=== PATIENT | male | born 1975 | race Caucasian/White ===

== ENCOUNTER 2017-10-16 04:01 | Emergency (ER) | payer BC ==
[~2017-10-16] VITALS: Ht 190.5 cm; Wt 80.7 kg
[2017-10-16] MEDS ORDERED: LIDOCAINE 1% Multi-Dose 20 ML VIAL. ONE (04:15)
--- NOTE | 2017-10-16 04:30 | PHYS DOC ---
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 no LOC. no headache, no n/v. lac to post scalp Review of Systems Review of Systems Constitutional: Denies fever or chills [] Eyes: Denies change in visual acuity, redness, or eye pain [] HENT: Denies nasal congestion or sore throat scalp lac Respiratory: Denies cough or shortness of breath [] Cardiovascular: No additional information not addressed in HPI [] GI: Denies abdominal pain, nausea, vomiting, bloody stools or diarrhea [] : Denies dysuria or hematuria [] Musculoskeletal: Denies back pain or joint pain [] Integument: Denies rash or skin lesions [] Neurologic: Denies headache, focal weakness or sensory changes [] Endocrine: Denies polyuria or polydipsia [] All other systems were reviewed and found to be within normal limits, except as documented in this note. Current Medications Current Medications Current Medications Medications (Trade) Dose Ordered Sig/Arianna Start Time Stop Time Status Last Admin Dose Admin Lidocaine HCl 20 ml STK-MED ONCE 10/16/17 04:15 10/16/17 04:16 DC Lidocaine/ Epinephrine (Xylocaine 1%-Epi 1:100,000) 20 ml 1X ONCE 10/16/17 04:30 10/16/17 04:31 UNV Allergies Allergies Allergies Coded Allergies Type Severity Reaction Last Updated Verified No Known Drug Allergies 11/04/15 No Physical Exam Physical Exam Constitutional: Well developed, well nourished, no acute distress, non-toxic appearance. [] HENT: 2inch lac to left post paritetal scalp. bleeding controlled. linear lac. bilateral external ears normal, oropharynx moist, no oral exudates, nose normal. [] Eyes: PERRLA, EOMI, conjunctiva normal, no discharge. [] Neck: Normal range of motion, no tenderness, supple, no stridor. [] Cardiovascular:Heart rate regular rhythm, no murmur [] Lungs & Thorax: Bilateral breath sounds clear to auscultation [] Abdomen: Bowel sounds normal, soft, no tenderness, no masses, no pulsatile masses. [] Skin: Warm, dry, no erythema, no rash. [] Back: No tenderness, no CVA tenderness. [] Extremities: No tenderness, no cyanosis, no clubbing, ROM intact, no edema. [] Neurologic: Alert and oriented X 3, normal motor function, normal sensory function, no focal deficits noted. nml neuro exam Psychologic: Affect normal, judgement normal, mood normal. [] EKG EKG [] Radiology/Procedures Radiology/Procedures lac repair.: 8cc 1% lidocaine infused after cleaning with betadine and water. 6 molly placed. no complications and tolerated well[] Course & Med Decision Making Course & Med Decision Making Pertinent Labs and Imaging studies reviewed. (See chart for details) pt has nml neuro exam. explained about delayed bleeding and to return to ED for headache, n/v, any change in neuro behaviours. he lives with who will watch him. his sister is EMT. he will return here or to his doctor for concussive sx. I asked him to avoid heights at work [] Dragon Disclaimer Dragon Disclaimer This electronic medical record was generated, in whole or in part, using a voice recognition dictation system. Departure Departure: Impression: Primary Impression: Scalp laceration Disposition: HOME, SELF-CARE Condition: IMPROVED Referrals: LARISSA QUIROGA MD (PCP) Patient Instructions: Head Injury, Adult, Laceration Care, Adult Additional Instructions: have molly out in 10 days. return if any infection, headache, nausea/vomiting , any change in thinking, walking, talking. have your doctor recheck in 3-4 days YEVGENIY DUBON MD Oct 16, 2017 04:30
[2017-10-16 04:45] VITALS: BP 140/87
[2017-10-16] MEDS ORDERED: LIDOCAINE 1%/EPI 1:100,000 20 ML VIAL. IJ ONE (04:45)
[2017-10-16] MEDS ORDERED: LIDOCAINE 1% Multi-Dose 20 ML VIAL. IJ ONE (05:00)
== END 2017-10-16 04:45 | disposition home or self-care (01) ==
LOC: ER 04:01
DX: S01.01XA Laceration without foreign body of scalp, initial encounter (principal); F12.10 Cannabis abuse, uncomplicated; W01.0XXA Fall on same level from slipping, tripping and stumbling without subsequent striking against object, initial encounter; Y93.89 Activity, other specified; Y99.8 Other external cause status; Y92.89 Other specified places as the place of occurrence of the external cause
CPT/HCPCS: 12002; 99283

== ENCOUNTER 2020-03-18 16:01 | Emergency (ER) | payer BC, OTHER ==
[~2020-03-18] VITALS: Ht 190.5 cm; Wt 83.3 kg
[2020-03-18 16:15] VITALS: BP 106/66
--- NOTE | 2020-03-18 16:37 | RAD ---
Study: CR HAND RIGHT 3V Indication: Fall. Hand pain. Comparison: None. Findings: No definite fracture seen throughout the hand or wrist. Only seen on the oblique view is a faint cortical regularity along the ulnar margin of the index metacarpal base (see tobias image). No traumatic malalignment. Faint densities projecting within or overlying the pulp of the index and long fingers. This may be external to the patient. Impression: Slight cortical regularity along the ulnar margin of the index metacarpal base only seen on the oblique view. This is not definitively an acute fracture but recommend correlation for localized tenderness. No osseous abnormality elsewhere. Electronically signed by: ABDI MOLINA MD (03/18/2020 4:34 PM) [id number]
--- NOTE | 2020-03-18 16:42 | PHYS DOC ---
Past History Past Medical History: Cancer, Other Additional Past Medical Histor: BACK PROBLEMS Past Surgical History: Cancer Surgery, Hip Replacement, Other Additional Past Surgical Histo: LEFT KIDNEY AND LEFT TESTICAL REMOVED(CA), LEFT ELBOW Additional Smoking Information: 1/2 PACK Alcohol Use: None Drug Use: Marijuana Adult General Chief Complaint Chief Complaint: HAND PROBLEM HPI HPI Patient is a 44-year-old male who presents for work-related fall. 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 Patient did not lose consciousness or hit head but ever since fall just prior to arrival but patient does voice ongoing pain to base of right middle finger. There is no palpable abnormality and/or open fr acture that is obvious but given ongoing pain, patient concern for potential bone break prompting him to seek care at our ER for evaluation Review of Systems Review of Systems Fourteen body systems of review of systems have been reviewed. See HPI for pertinent positives and negative responses, other echols all other systems are negative, non-pertinent or non-contributory Allergies Allergies Allergies Coded Allergies Type Severity Reaction Last Updated Verified No Known Drug Allergies 11/04/15 No Physical Exam Physical Exam Constitutional: Well developed, well nourished, no acute distress, non-toxic appearance. HENT: Normocephalic, atraumatic, bilateral external ears normal, oropharynx moist, no oral exudates, nose normal. Eyes: PERRLA, EOMI, conjunctiva normal, no discharge. Neck: Normal range of motion, no tenderness, supple, no stridor. Cardiovascular: Heart rate regular, sinus rhythm, no murmurs rubs or gallops Lungs & Thorax: Bilateral breath sounds clear to auscultation Abdomen: Bowel sounds normal, soft, no tenderness, no masses, no pulsatile masses. Nonsurgical abdomen, no peritoneal signs Skin: Warm, dry, no erythema, no rash. Back: No tenderness, no CVA tenderness. Extremities: No cyanosis, no clubbing, ROM intact, no edema. Direct pain to palpation of base of right index finger metacarpal, no anatomical snuffbox tenderness or other abnormalities of right hand, as noted before unremarkable motor and sensory testing Neurologic: Alert and oriented X 3, normal motor & sensory function, no focal deficits noted. Psychologic: Affect normal, judgement normal, mood normal. Current Patient Data Vital Signs Vital Signs Date Time Temp Pulse Resp B/P (MAP) Pulse Ox O2 Delivery O2 Flow Rate FiO2 03/18/20 16:15 98.8 78 20 106/66 (79) 98 Room Air EKG EKG PROCEDURE: HAND RIGHT 3V Study: CR HAND RIGHT 3V Indication: Fall. Hand pain. Comparison: None. Findings: No definite fracture seen throughout the hand or wrist. Only seen on the oblique view is a faint cortical regularity along the ulnar margin of the index metacarpal base (see tobias image). No traumatic malalignment. Faint densities projecting within or overlying the pulp of the index and long fingers. This may be external to the patient. Impression: Slight cortical regularity along the ulnar margin of the index metacarpal base only seen on the oblique view. This is not definitively an acute fracture but recommend correlation for localized tenderness. No osseous abnormality elsewhere. Electronically signed by: ABDI MOLINA MD (03/18/2020 4:34 PM) [id number] Radiology/Procedures Radiology/Procedures PROCEDURE: HAND RIGHT 3V Study: CR HAND RIGHT 3V Indication: Fall. Hand pain. Comparison: None. Findings: No definite fracture seen throughout the hand or wrist. Only seen on the oblique view is a faint cortical regularity along the ulnar margin of the index metacarpal base (see tobias image). No traumatic malalignment. Faint densities projecting within or overlying the pulp of the index and long fingers. This may be external to the patient. Impression: Slight cortical regularity along the ulnar margin of the index metacarpal base only seen on the oblique view. This is not definitively an acute fracture but recommend correlation for localized tenderness. No osseous abnormality elsewhere. Electronically signed by: ABDI MOLINA MD (03/18/2020 4:34 PM) [id number] Course & Med Decision Making Course & Med Decision Making Well-appearing ambulatory patient seen on immediate ER arrival ABCs unremarkable Comprehensive history and physical exam obtained, subsequent diagnostic studies ordered Discussed nonconclusive radiographs of right hand concerning for base of right index finger metacarpal cortical fracture that is minimally displaced I discussed various plans of care with patient but ultimately, joint decision to follow rice protocol with Velcro right hand splint applied and close orthopedic follow-up for reevaluation and potential imaging as indicated Strict return precautions were discussed with patient with good understanding, all questions and concerns addressed prior to ER departure in stable condition Dragon Disclaimer Dragon Disclaimer This electronic medical record was generated, in whole or in part, using a voice recognition dictation system. Departure Departure: Impression: Primary Impression: Right hand pain Disposition: 01 HOME/RESIDENCE PRIOR TO ADM Condition: STABLE Referrals: LARISSA QUIROGA MD (PCP) DMITRY GARVIN II, MD Please call first thing tomorrow morning to schedule outpatient follow-up for your right hand pain Patient Instructions: RICE - Routine Care for Injuries Additional Instructions: As discussed prior to ER departure, please continue supportive care consisting of icing, Tylenol and Motrin for pain relief, and gentle compression and restriction of your right hand You would benefit from outpatient orthopedic consultation. They will reevaluate you and potentially reimage the hand given uncertainty of imaging today for a subtle acute fracture at the base of your index finger metacarpal Please call your primary care physician to follow-up on this ER visit and for continuity of care in upcoming 1 to 10 days time If there is anything more we can assist you with in the outpatient setting and/or new concerning symptoms arise requiring prompt medical attention please do not hesitate to contact us or re-present for evaluation Justification of Admission: Justification of Admission: Justification of Admission Dx: N/A ZIYAD PÉREZ DO Mar 18, 2020 16:42
== END 2020-03-18 16:58 | disposition home or self-care (01) ==
LOC: ER 16:01
DX: M79.641 Pain in right hand (principal); M79.644 Pain in right finger(s); F17.200 Nicotine dependence, unspecified, uncomplicated; W18.39XA Other fall on same level, initial encounter; Y93.89 Activity, other specified; Y92.89 Other specified places as the place of occurrence of the external cause; Y99.0 Civilian activity done for income or pay
CPT/HCPCS: 29125; 73130; 99283

== ENCOUNTER 2021-06-04 09:29 | Emergency (ER) | payer BC, OTHER ==
[~2021-06-04] VITALS: Ht 190.5 cm; Wt 83.3 kg
[2021-06-04 09:55] VITALS: BP 121/77
[2021-06-04] MEDS ORDERED: HYDROcodone/APAP 5/325MG 1 TAB TABLET PO ONE (10:15)
--- NOTE | 2021-06-04 11:30 | RAD ---
Single AP view of the pelvis with AP and frog-leg lateral views of the left hip were obtained. History: Fall with pain Comparison: none. Patient status post bilateral hip arthroplasties. No fracture is seen about the left proximal femur a cetabulum. The femoral head is located in the acetabulum. No significant degenerative changes are s een. Impression: 1. Unremarkable plain film exam of the left hip. Electronically signed by: Alexsander Horn MD (06/04/2021 11:27 AM) [id number]
--- NOTE | 2021-06-04 11:41 | PHYS DOC ---
Past History Past Medical History: Cancer, Other Additional Past Medical Histor: testicular cancer and bladder cancer (JUNIE CABRERA APRN) Past Surgical History: Cancer Surgery, Hip Replacement, Other Additional Past Surgical Histo: LEFT KIDNEY AND LEFT TESTICAL REMOVED(CA), LEFT ELBOW (JUNIE CABRERA APRN) Alcohol Use: None Drug Use: Marijuana (JUNIE CABRERA APRN) General Adult EDM: Chief Complaint: HIP PAIN HPI: HPI: Patient is a 46-year-old male presents after a fall on Thursday with left hip pain. Patient denies any other injuries. Denies hitting his head or loss of consciousness. Patient states he has been taking Tylenol at home with little relief. Pain is exacerbated by standing and improved with sitting. Patient has a history of bladder and testicle cancer. Denies any other medical history. (JUNIE CABRERA APRN) Review of Systems: Review of Systems: ROS At least 10 ROS systems have been reviewed and are negative except as documented in the HPI. General: Negative except as outlined in HPI above. Skin: Negative except as outlined in HPI above. HEENT: Negative except as outlined in HPI above. Neck: Negative except as outlined in HPI above. Respiratory: Negative except as outlined in HPI above.. Cardiovascular: Negative except as outlined in HPI above. Abdomen: Negative except as outlined in HPI above. : Negative except as outlined in HPI above. Back/MSK: Negative except as outlined in HPI above. Neuro: Negative except as outlined in HPI above. Psych: Negative except as outlined in HPI above. (JUNIE CABRERA APRN) Current Medications: Current Meds: Current Medications Medications (Trade) Dose Ordered Sig/Arianna Start Time Stop Time Status Last Admin Dose Admin Acetaminophen/ Hydrocodone Bitart (Lortab 5/325) 1 tab 1X ONCE 06/04/21 10:15 06/04/21 10:16 DC 06/04/21 10:17 1 TAB (JUNIE CABRERA APRN) Allergies: Allergies: Allergies Coded Allergies Type Severity Reaction Last Updated Verified No Known Drug Allergies 06/04/21 No (JUNIE CABRERA APRN) Physical Exam: PE: Constitutional: Well developed, well nourished, no acute distress, non-toxic appearance. [] HENT: Normocephalic, atraumatic, bilateral external ears normal, oropharynx moist, no oral exudates, nose normal. [] Eyes: PERRLA, EOMI, conjunctiva normal, no discharge. [] Neck: Normal range of motion, no tenderness, supple, no stridor. [] Cardiovascular:Heart rate regular rhythm, no murmur [] Lungs & Thorax: Bilateral breath sounds clear to auscultation [] Abdomen: Bowel sounds normal, soft, no tenderness, no masses, no pulsatile masses. [] Skin: Warm, dry, no erythema, no rash. [] Back: No tenderness, no CVA tenderness. [] Extremities: No tenderness, no cyanosis, no clubbing, ROM intact, no edema. Left hip pain, exacerbated with ambulation Neurologic: Alert and oriented X 3, normal motor function, normal sensory function, no focal deficits noted. [] Psychologic: Affect normal, judgement normal, mood normal. [] (JUNIE CABRERA APRN) Current Patient Data: Vital Signs: Vital Signs Date Time Temp Pulse Resp B/P (MAP) Pulse Ox O2 Delivery O2 Flow Rate FiO2 06/04/21 10:17 18 97 Room Air 06/04/21 09:55 97.7 103 121/77 (92) (JUNIE CABRERA APRN) EKG: EKG: [] (JUNIE CABRERA APRN) Radiology/Procedures: Radiology/Procedures: [] (JUNIE CABRERA APRN) Heart Score: C/O Chest Pain: No Risk Factors: Risk Factors: DM, Current or recent (<one month) smoker, HTN, HLP, family history of CAD, obesity. Risk Scores: Score 0 - 3: 2.5% MACE over next 6 weeks - Discharge Home Score 4 - 6: 20.3% MACE over next 6 weeks - Admit for Clinical Observation Score 7 - 10: 72.7% MACE over next 6 weeks - Early Invasive Strategies (JUNIE CABRERA APRN) Course & Med Decision Making: Course & Med Decision Making Pertinent Labs and Imaging studies reviewed. (See chart for details) [] 46-year-old male presents after a fall on Thursday with left hip pain. Denies any other injuries. Pain treated in emergency room. Denies loss of bowel or urinary retention. No saddle anesthesia. Left hip and pelvis x-ray ordered. All x-rays are unremarkable. Instructed patient to treat discomfort at home with ibuprofen. Can use ice to area. Advised patient to call PCP make a follow-up appointment. Discussed return precautions. Patient verbalized he understands discharge instructions. Patient is hemodynamically stable upon disposition. (JUNIE CABRERA APRN) Course & Med Decision Making I was the Attending physician on the above date of service of this patient. This patient was evaluated, examined, treated, and dispositioned from the emergency department by the mid-level practitioner. Although I was working at the time , no assistance was requested. Electronically signed, Ziyad Pérez DO (ZIYAD PÉREZ DO) Luana Disclaimer: Luana Disclaimer: This electronic medical record was generated, in whole or in part, using a voice recognition dictation system. (JUNIE CABRERA APRN) Departure Departure: Impression: Primary Impression: Hip pain, left Disposition: HOME / SELF CARE / HOMELESS Condition: STABLE Referrals: LARISSA QUIROGA MD (PCP) Patient Instructions: Hip Pain Additional Instructions: You are seen in the emergency room for left hip pain after a fall. X-ray was negative for fracture. Please follow-up with your PCP for further management if pain does not improve. Motrin and ice to the area for discomfort. Return to the emergency room with worsening symptoms or concerns. EMERGENCY DEPARTMENT GENERAL DISCHARGE INSTRUCTIONS Thank you for coming to [facility] (ED) today and trusting us with you care. We trust that you had a positivie experience in our Emergency Department. If you wish to speak to the department management, you may call the director at [phone]. YOUR FOLLOW UP INSTRUCTIONS ARE FOLLOWS: 1. Do you have a private Doctor? If you do not have a private doctor, please ask for a resource list of physicians or clinics that may be able to assist you with follow up care. 2. The Emergency Physician has interpreted your x-rays. The X-Ray specialist will also review them. If there is a change in the findings, you will be notified in 48 hours when at all possible. 3. A lab test or culture has been done, your results will be reviewed and you will be notified if you need a change in treatment. ADDITIONAL INSTRUCTIONS AND INFORMATION: 1. Your care today has been supervised by a physician who is specially trained in emergency care. Many problems require more than one evaluation for a complete diagnosis and treatment. We recommend that you schedule your follow up appointment as recommended to ensure complete treatment of you illness or injury. If you are unable to obtain follow up care and continue to have a problem, or if your condition worsens, we recommend that you return to the ED. 2. We are not able to safely determine your condition over the phone nor are we able to give sound medical advice over the phone. For these safety reasons, if you call for medical advice we will ask you to come to the ED for further evaluation. 3. If you have any questions regarding these discharge instructions please call the ED at [phone]. SAFETY INFORMATION: In the interest of safety, wellness, and injury prevention; we encourage you to wear your sealbelt, if you smoke; quite smoking, and we encourage family to use a protective helmet for bicycling and other sporting events that present an increased risk for head injury. IF YOUR SYMPTOMS WORSEN OR NEW SYMPTOMS DEVELOP, OR YOU HAVE CONCERNS ABOUT YOUR CONDITION; OR IF YOUR CONDITION WORSENS WHILE YOU ARE WAITING FOR YOUR FOLLOW UP APPOINTMENT; EITHER CONTACT YOUR PRIMARY CARE DOCTOR, THE PHYSICIAN WHOSE NAME AND NUMBER YOU WERE GIVEN, OR RETURN TO THE ED IMMEDIATELY. JUNIE CABRERA APRN Jun 04, 2021 11:41 ZIYAD PÉREZ DO Jun 08, 2021 07:47
== END 2021-06-04 12:00 | disposition home or self-care (01) ==
LOC: ER 09:29
DX: M25.552 Pain in left hip (principal); W18.39XA Other fall on same level, initial encounter; Y93.89 Activity, other specified; Y92.89 Other specified places as the place of occurrence of the external cause; Y99.8 Other external cause status
CPT/HCPCS: 73502; 99283

== ENCOUNTER 2021-10-20 19:11 | Emergency (ER) | payer BC ==
--- NOTE | 2021-10-20 19:25 | PHYS DOC ---
Past History Past Medical History: Cancer, Other Additional Past Medical Histor: testicular cancer and bladder cancer Past Surgical History: Cancer Surgery, Hip Replacement, Other Additional Past Surgical Histo: LEFT KIDNEY AND LEFT TESTICAL REMOVED(CA), LEFT ELBOW Alcohol Use: None Drug Use: Marijuana General Adult HPI: HPI: Patient is a 46-year-old male who presents to the emergency department for right hand pain that occurred yesterday after he was on listening a ball and hit his hand on something. He reports swelling to the area. He rates his pain 7 out of 10. No treatment prior to arrival. He denies any decreased sensation to his extremities but reports decreased flexion due to swelling. Review of Systems: Review of Systems: Musculoskeletal: See HPI Integument: See HPI Neurologic: See HPI Allergies: Allergies: Allergies Coded Allergies Type Severity Reaction Last Updated Verified No Known Drug Allergies 06/04/21 No Physical Exam: PE: Constitutional: Well developed, well nourished, no acute distress, non-toxic appearance. [] HENT: Normocephalic, atraumatic, bilateral external ears normal, oropharynx moist, no oral exudates, nose normal. [] Eyes: PERRL, EOMI, conjunctiva normal, no discharge. [] Neck: Normal range of motion, no stridor Cardiovascular normal peripheral perfusion Lungs & Thorax: No work of breathing, no tachypnea Abdomen: Soft and flat Skin: Warm, dry, no erythema, no rash. [] Back: No tenderness, no motion Extremities: No tenderness, no cyanosis, no clubbing, ROM intact, no edema. [] Right hand: Swelling and pain noted to the ulnar aspect of right hand, decreased flexion due to pain and swelling, full extension noted, neuro intact, no open wounds Neurologic: Alert and oriented X 3, normal motor function, normal sensory function, no focal deficits noted. [] Psychologic: Affect normal, judgement normal, mood normal. [] EKG: EKG: [] Radiology/Procedures: Radiology/Procedures: [] Heart Score: C/O Chest Pain: N/A Risk Factors: Risk Factors: DM, Current or recent (<one month) smoker, HTN, HLP, family history of CAD, obesity. Risk Scores: Score 0 - 3: 2.5% MACE over next 6 weeks - Discharge Home Score 4 - 6: 20.3% MACE over next 6 weeks - Admit for Clinical Observation Score 7 - 10: 72.7% MACE over next 6 weeks - Early Invasive Strategies Course & Med Decision Making: Course & Med Decision Making Pertinent Labs and Imaging studies reviewed. (See chart for details) [] Patient presents to the emergency department for right hand pain and swelling after hitting it on something yesterday when he was on listening a ball. An x- ray was performed Dragon Disclaimer: Dragon Disclaimer: This electronic medical record was generated, in whole or in part, using a voice recognition dictation system. Departure Departure: Referrals: HAILEY MORRISON MD (PCP) KAT COLLINS APRN Oct 20, 2021 19:25
[2021-10-20] MEDS ORDERED: HYDROmorphone PF 1 MG/ML DISP.SYRIN ONE (19:36)
[2021-10-20] MEDS ORDERED: LIDOCAINE 1% PF 30 ML VIAL. INJ ONE (19:45)
[2021-10-20] MEDS ORDERED: IBUPROFEN 600 MG TABLET. PO ONE (19:45)
[2021-10-20] MEDS ORDERED: HYDROmorphone PF 2 MG/ML VIAL IM ONE (19:45)
--- NOTE | 2021-10-20 19:57 | PHYS DOC ---
Past History Past Medical History: Cancer, Other Additional Past Medical Histor: testicular cancer and bladder cancer Past Surgical History: Cancer Surgery, Hip Replacement, Other Additional Past Surgical Histo: LEFT KIDNEY AND LEFT TESTICAL REMOVED(CA), LEFT ELBOW Alcohol Use: None Drug Use: Marijuana Adult General Chief Complaint Chief Complaint: FINGER INJURY HPI HPI Patient is an otherwise healthy 46-year-old male who presents with right pinky finger injury after hitting it on the truck yesterday while working on it. States he has some swelling and pain, 7 out of 10. Review of Systems Review of Systems Constitutional: Denies fever or chills [] Eyes: Denies change in visual acuity, redness, or eye pain [] HENT: Denies nasal congestion or sore throat [] Respiratory: Denies cough or shortness of breath [] Cardiovascular: No additional information not addressed in HPI [] GI: Denies abdominal pain, nausea, vomiting, bloody stools or diarrhea [] : Denies dysuria or hematuria [] Musculoskeletal: Denies back pain or joint pain [] Integument: Denies rash or skin lesions [] Neurologic: Denies headache, focal weakness or sensory changes [] Endocrine: Denies polyuria or polydipsia [] All other systems were reviewed and found to be within normal limits, except as documented in this note. Allergies Allergies Allergies Coded Allergies Type Severity Reaction Last Updated Verified No Known Drug Allergies 06/04/21 No Physical Exam Physical Exam Constitutional: Well developed, well nourished, no acute distress, non-toxic appearance. [] HENT: Normocephalic, atraumatic, bilateral external ears normal, oropharynx moist, no oral exudates, nose normal. [] Eyes: conjunctiva normal, no discharge. [] Neck: Normal range of motion, no tenderness, supple, no stridor. [] Extremities: Neurovascular exam intact, some mild tenderness and swelling at fifth MCP with good capillary refill and good range of motion Neurologic: Alert and oriented X 3, normal motor function, normal sensory function, no focal deficits noted. [] Psychologic: Affect normal, judgement normal, mood normal. [] EKG EKG [] Radiology/Procedures Radiology/Procedures [] Heart Score C/O Chest Pain: No Risk Factors: Risk Factors: DM, Current or recent (<one month) smoker, HTN, HLP, family history of CAD, obesity. Risk Scores: Risk Factors: DM, Current or recent (<one month) smoker, HTN, HLP, family history of CAD, obesity. Course & Med Decision Making Course & Med Decision Making Patient is a 46-year-old male who presents with right pinky injury Vital signs nonconcerning. Physical exam noted above. Given pain medication. Given ice pack. Imaging with acute fracture of the distal aspect of the fifth metacarpal with mild displacement Digital block performed with 3 mils of 1% lidocaine after cleaning area. Reduced as much as patient can tolerate. Discussed symptom management at home. Advised to call [facility] orthopedics first thing in the morning to update and set up a follow-up appointment gave return precautions to the ED. Patient grateful, verbalized understanding and agreed with plan of discharge [] Dragon Disclaimer Dragon Disclaimer This electronic medical record was generated, in whole or in part, using a voice recognition dictation system. Departure Departure: Impression: Primary Impression: Metacarpal bone fracture Disposition: HOME / SELF CARE / HOMELESS Condition: STABLE Referrals: HAILEY MORRISON MD (PCP) Patient Instructions: Cast or Splint Care, Hand Fracture, Fifth Metacarpal Additional Instructions: Thank you for coming into the emergency department tonight and allowing us to take care of you. Please read the attached information carefully to go over things we discussed. You can use Tylenol, ibuprofen, Benadryl and ice as needed. Please use your prescription pain medicine as needed for breakthrough p ain. Please call the [facility] orthopedic group first thing in the morning at [phone] to discuss your ED visit and set up a follow-up for later in the week for reevaluation by the orthopedic surgeons. Please come into the ED with new or concerning symptoms as we discussed. Scripts Hydrocodone Bit/Acetaminophen (HYDROCODONE-APAP 5-325 ) 1 Each Tablet 1 TAB PO PRN Q6HRS PRN for fracture for 4 Days, #15 TAB 0 Refills Prov: MAURICIO MCPHERSON MD 10/20/21 MAURICIO MCPHERSON MD Oct 20, 2021 19:57
--- NOTE | 2021-10-20 20:29 | RAD ---
INDICATION: Reason: hand injury / Spl. Instructions: / History: COMPARISON: March 2020 IMPRESSION: Right hand: 3 views obtained. Acute appearing fracture of the distal aspect of the fifth metacarpal w ith angulation and mild displacement. Electronically signed by: Jose Antonio Pitts MD (10/20/2021 8:26 PM) [id number]
[2021-10-20] MEDS ORDERED: oxyCODONE/APAP 5/325 1 TAB TABLET PO ONE (21:15)
[2021-10-20] MEDS ORDERED: HYDR-2155 PO (21:17)
== END 2021-10-20 21:51 | disposition home or self-care (01) ==
LOC: ER 19:11
DX: S62.396A Other fracture of fifth metacarpal bone, right hand, initial encounter for closed fracture (principal); W22.8XXA Striking against or struck by other objects, initial encounter; Y93.89 Activity, other specified; Y92.89 Other specified places as the place of occurrence of the external cause; Y99.8 Other external cause status
CPT/HCPCS: 26605; 73130; 96372; 99284; J1170